=== PATIENT | female | born 1995 | race Two or more races ===

== ENCOUNTER 2022-01-28 15:04 | Emergency (ER) | payer OTHER ==
[~2022-01-28] VITALS: Ht 157.5 cm; Wt 59.9 kg
--- NOTE | 2022-01-28 15:13 | NUR ---
TO ER BED 2, [id number] C/O DIZZINESS WITH BYRNE X 3 DAYS, WORSE TODAY +NAUSEA, DENIES POSSIBILITY OF , AAOX3, BREATHING EVEN AND NON LABORED, CONNECTED TO MONITOR, AWAITING MD ORDERS
[2022-01-28] MEDS ORDERED: PROCHLORPERAZINE EDISYLATE 10 MG/2 ML VIAL ONE (16:57)
[2022-01-28] MEDS ORDERED: MECLIZINE HCL 25 MG TABLET ONE (16:57)
[2022-01-28] MEDS ORDERED: PROCHLORPERAZINE EDISYLATE 10 MG/2 ML VIAL IVP ONE (17:00)
[2022-01-28] MEDS ORDERED: IV NS 0.9% 1,000 ML BAG IV ONE (17:00)
[2022-01-28] MEDS ORDERED: MECLIZINE HCL 25 MG TABLET PO ONE (17:00)
--- NOTE | 2022-01-28 17:00 | NUR ---
SALINE LOCK ESTABLISHED, BLOOD DRAWN AND SENT TO LAB
[2022-01-28 17:11] LABS: BASOPHILS % (AUTO) 0.5 % (0.0-2.0); EOSINOPHILS % (AUTO) 3.3 % (0.0-6.0); HEMATOCRIT 39 % (33-45); HEMOGLOBIN 13.1 g/dL (11.5-14.8); LYMPHOCYTES # (AUTO) 1.8 K/uL (0.8-4.8); LYMPHOCYTES % (AUTO) 34.7 % (20.0-44.0); MEAN CORPUSCULAR HGB CONC 33 g/dl (31.0-36.0); MEAN CORPUSCULAR VOLUME 82 fL (82-100); MONOCYTES # (AUTO) 0.4 K/uL (0.1-1.30); MONOCYTES % (AUTO) 7.7 % (2.0-12.0); NEUTROPHILS # (AUTO) 2.8 K/uL (1.8-8.9); NEUTROPHILS % (AUTO) 53.8 % (43.0-81.0); PLATELET COUNT (AUTO) 280 K/uL (150-450); WHITE BLOOD COUNT (AUTO) 5.2 K/uL (4.3-11.0)
[2022-01-28 17:20] LABS: CALCIUM, SERUM 8.2 mg/dL (8.5-10.1); CREATININE 0.7 mg/dL (0.6-1.3); POTASSIUM 3.8 mmol/L (3.5-5.1)
[2022-01-28 17:27] LABS: ALBUMIN 3.8 g/dL (3.4-5.0); BILIRUBIN,DIRECT 0.1 mg/dL (0.0-0.2); BILIRUBIN,TOTAL 0.3 mg/dL (0.2-1.0); TOTAL PROTEIN, SERUM 7.1 g/dL (6.4-8.2)
[2022-01-28 17:30] LABS: BILIRUBIN,URINE NEGATIVE (NEGATIVE); COLOR,URINE YELLOW (YELLOW); LEUKOCYTE ESTERASE ,URINE NEGATIVE (NEGATIVE); NITRITE, URINE NEGATIVE (NEGATIVE); PH,URINE 5.5 (5.0-8.0); PROTEIN,URINE NEGATIVE (NEGATIVE); UGLUCOSE NEGATIVE (NEGATIVE); UROBILINOGEN,URINE 0.2 EU/dL (0.2)
--- NOTE | 2022-01-28 18:36 | NUR ---
FOLLOWED UP CT RESULTS WITH SARAHI AGUDELO, WILL CALL BACK
--- NOTE | 2022-01-28 18:42 | NUR ---
PRINTED CT RESULTS RECEIVED AND GIVEN TO DR PEÑA
[2022-01-28 20:23] VITALS: BP 112/68
--- NOTE | 2022-01-28 20:23 | NUR ---
Patient discharged to home in stable condition. Written and verbal after care instructions given. Patient verbalizes understanding of instruction.
== END 2022-01-28 20:24 | disposition home or self-care (01) ==
LOC: ER 15:06
DX: H53.123 Transient visual loss, bilateral (principal); G43.909 Migraine, unspecified, not intractable, without status migrainosus; G93.0 Cerebral cysts; H81.10 Benign paroxysmal vertigo, unspecified ear
CPT/HCPCS: 36415; 70450; 80048; 80076; 81003; 84703; 85025; 93005; 96361; 96374; 99284; J0780; J7030; J8597